=== PATIENT | female | born 1985 | race Two or more races ===

== ENCOUNTER 2020-01-01 10:37 | Emergency (ER) | payer SELFPAY ==
[~2020-01-01] VITALS: Ht 152.4 cm; Wt 90.0 kg
[2020-01-01 10:51] VITALS: BP 112/70
--- NOTE | 2020-01-01 11:37 | PHYS DOC ---
Past Medical History Past Medical History: No Pertinent History Past Surgical History: No Surgical History Smoking Status: Never Smoker Alcohol Use: None Adult General Chief Complaint Chief Complaint: HAND PROBLEM [facility] HPI Patient is a 34 year old female, accompanied by her , who presents to the emergency department with complaints of right wrist pain that is worse at night for the last few months. She denies any injury. 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 She states that her first through third digits of her affected hand feel tingly and numb. She denies any decreased range of motion, she states that the pain radiates up to her elbow at times. She currently rates the discomfort a 10 out of 10 on the pain scale, she denies any alleviating factors. Review of Systems Review of Systems Complete ROS is negative unless otherwise noted in HPI. Allergies Allergies Allergies Coded Allergies Type Severity Reaction Last Updated Verified No Known Drug Allergies 01/01/20 No Physical Exam Physical Exam See Above Constitutional: Well developed, well nourished, no acute distress, non-toxic appearance. [] HENT: Normocephalic, atraumatic, bilateral external ears normal, nose normal. [] Eyes: PERRLA, EOMI, conjunctiva normal, no discharge. [] Neck: Normal range of motion, no stridor. [] Cardiovascular:Heart rate regular rhythm Lungs & Thorax: Respirations even and unlabored, no retractions, no respiratory distress Skin: Warm, dry, no erythema, no rash. [] Extremities: Right wrist: Positive Phalen's and Tinel testing, no obvious deformity, no crepitus, no tenderness, no cyanosis, no clubbing, ROM intact, no edema. [] Neurologic: Alert and oriented X 3, no focal deficits noted. [] Psychologic: Affect normal, judgement normal, mood normal. [] Current Patient Data Vital Signs Vital Signs Date Time Temp Pulse Resp B/P (MAP) Pulse Ox O2 Delivery O2 Flow Rate FiO2 01/01/20 10:51 97.5 52 14 112/70 (84) 98 Room Air 97.5 EKG EKG [] Radiology/Procedures Radiology/Procedures [] Course & Med Decision Making Course & Med Decision Making Pertinent Labs and Imaging studies reviewed. (See chart for details) [] Dragon Disclaimer Dragon Disclaimer This electronic medical record was generated, in whole or in part, using a voice recognition dictation system. Departure Departure Impression: Primary Impression: Carpal tunnel syndrome of right wrist Disposition: HOME, SELF-CARE Condition: STABLE Referrals: NO PCP (PCP) Patient Instructions: Carpal Tunnel Syndrome, [id number] Additional Instructions: Fill the prescription and use it as directed. Purchase the wrist splints that you were shown in the emergency department. Follow up with your primary care doctor this week, return to the ER if symptoms worsen. Scripts Naproxen (NAPROXEN) 500 Mg Tablet 1 TAB PO BID PRN for PAIN for 10 Days, #20 TAB 0 Refills Prov: TRISTIN PARTIDA APRN 01/01/20 TRISTIN PARTIDA APRN Jan 01, 2020 11:37
[2020-01-01] MEDS ORDERED: NAPR-514 PO (11:43)
== END 2020-01-01 11:47 | disposition home or self-care (01) ==
LOC: ER 10:37
DX: G56.01 Carpal tunnel syndrome, right upper limb (principal); M25.531 Pain in right wrist
CPT/HCPCS: 99282